=== PATIENT | female | born 1985 | race Caucasian/White ===

== ENCOUNTER 2017-10-11 20:15 | Emergency (ER) | payer MEDICAID ==
[~2017-10-11] VITALS: Ht 157.5 cm; Wt 65.8 kg
[2017-10-11 20:33] VITALS: Ht 157.5 cm; Wt 65.8 kg
[2017-10-11 22:17] VITALS: BP 114/73
== END 2017-10-11 22:17 | disposition home or self-care (01) ==
LOC: ED 20:15
DX: S61.011A Laceration without foreign body of right thumb without damage to nail, initial encounter (principal); W25.XXXA Contact with sharp glass, initial encounter; Y93.89 Activity, other specified; Y92.89 Other specified places as the place of occurrence of the external cause; Y99.8 Other external cause status
CPT/HCPCS: 90715